=== PATIENT | male | born 1970 | race African-American/Black ===

== ENCOUNTER 2020-12-22 11:46 | Observation (INO) | payer BC ==
[2020-12-22 13:46] LABS: BASO % 0.6 % (0-2.0); EOS % 2.8 % (0-4.5); HEMATOCRIT 47.3 % (35.4-49); HEMOGLOBIN 15.9 GM/dL (11.7-16.9); LYMPH % 25.6 % (8-40); MCH 30.3 pg (25.7-33.7); MCHC 33.5 g/dl (32.0-35.9); MEAN CELL VOLUME 90.5 fl (80-96); MEAN PLT VOLUME 7.2 fl (7.5-11.1); MONO % 8.8 % (3.8-10.2); NEUT % 62.2 % (42.8-82.8); PLATELET COUNT 217 10^3/uL (134-434); RBC 5.23 M/mm3 (4.00-5.60); RDW 13.8 % (11.9-15.9); WHITE BLOOD COUNT 7.2 K/mm3 (4.0-10.0)
[2020-12-22 14:03] LABS: INR 0.92 (0.83-1.09); PROTHROMBIN TIME (PATIENT) 11.3 SEC (9.7-13.0)
[2020-12-22 14:05] LABS: ALBUMIN 4.6 g/dl (3.4-5.0); BLOOD UREA NITROGEN 12.3 mg/dL (7-18); CALCIUM 9.7 mg/dL (8.5-10.1); MAGNESIUM 2.5 mg/dL (1.8-2.4)
[2020-12-22 14:10] LABS: BILIRUBIN,TOTAL 0.7 mg/dL (0.2-1); TOT PROT 8.6 g/dl (6.4-8.2)
[2020-12-22 14:13] LABS: N-TERMINAL BNP 12.5 pg/ml (5-125)
[2020-12-22] MEDS ORDERED: ASPIRIN 325 MG TABLET PO ONE (14:16)
[2020-12-22] MEDS ORDERED: ASPIRIN 81 MG CHEWABLE TABLETS ONE (14:25)
[2020-12-22 15:01] LABS: CREATININE 1.2 mg/dL (0.55-1.3)
[2020-12-22 17:19] VITALS: BMI 35.7
[2020-12-22] MEDS ORDERED: amLODIPine BESYLATE 5 MG TABLET (FP) PO ONE (17:58)
[2020-12-22] MEDS ORDERED: ATORVASTATIN CA 80 MG TABLET (FP) PO ONE (18:31)
[2020-12-23 07:24] LABS: BASO % 0.7 % (0-2.0); EOS % 3.3 % (0-4.5); HEMATOCRIT 44.6 % (35.4-49); HEMOGLOBIN 15.2 GM/dL (11.7-16.9); LYMPH % 28.6 % (8-40); MCH 30.8 pg (25.7-33.7); MEAN CELL VOLUME 90.6 fl (80-96); MEAN PLT VOLUME 6.9 fl (7.5-11.1); MONO % 9.4 % (3.8-10.2); PLATELET COUNT 206 10^3/uL (134-434); RBC 4.92 M/mm3 (4.00-5.60); RDW 13.8 % (11.9-15.9); WHITE BLOOD COUNT 6.7 K/mm3 (4.0-10.0)
[2020-12-23 07:43] LABS: CALCIUM 9.3 mg/dL (8.5-10.1)
[2020-12-23 07:44] LABS: ALBUMIN 4.1 g/dl (3.4-5.0); BLOOD UREA NITROGEN 12.8 mg/dL (7-18); MAGNESIUM 2.3 mg/dL (1.8-2.4)
[2020-12-23 07:46] LABS: CREATININE 1.2 mg/dL (0.55-1.3); PHOSPHOROUS 3.2 mg/dL (2.5-4.9)
[2020-12-23 07:47] LABS: BILIRUBIN,TOTAL 1.5 mg/dL (0.2-1); TOT PROT 7.7 g/dl (6.4-8.2)
[2020-12-23] MEDS: amLODIPine BESYLATE 5 MG TABLET (FP) PO SCH ×2 (08:29→12:21)
[2020-12-23] MEDS ORDERED: PT OWN MED DRAWER 7, Y5N ONE (09:05)
[2020-12-23] MEDS ORDERED: ASPIRIN COATED 81 MG TABLET.EC PO SCH (10:00)
[2020-12-23] MEDS ORDERED: CLOPIDOGREL BISULFATE 300 MG TABLET PO ONE (12:00)
[2020-12-23] MEDS: metoPROLOL SUCCINATE 25 MG TAB.SR.24H (FP) PO SCH (12:21)
[2020-12-23] MEDS: ENOXAPARIN NA (PORCINE) 40 MG/0.4 ML DISP.SYRIN SQ SCH (13:33)
[2020-12-24 07:38] LABS: TRIGLYCERIDES 70 mg/dL (0-150)
[2020-12-24 07:40] LABS: HDL CHOLESTEROL 46 mg/dL (40-60)
[2020-12-24 07:41] LABS: CHOLESTEROL 146 mg/dL (50-200)
[2020-12-24 07:42] LABS: LDL CHOLESTEROL (ONLY SJRH) 78 mg/dL (5-100)
[2020-12-24] MEDS ORDERED: CLOPIDOGREL BISULFATE 75 MG TABLET (FP) PO SCH (10:00)
[2020-12-24] MEDS ORDERED: ATORVASTATIN CA 80 MG TABLET (FP) PO ONE (10:00)
[2020-12-24] MEDS ORDERED: LISINOPRIL 5 MG TABLET PO ONE (10:08)
[2020-12-24] MEDS: amLODIPine BESYLATE 5 MG TABLET (FP) PO SCH (10:55)
[2020-12-24] MEDS: metoPROLOL SUCCINATE 25 MG TAB.SR.24H (FP) PO SCH (10:55)
[2020-12-24] MEDS: ENOXAPARIN NA (PORCINE) 40 MG/0.4 ML DISP.SYRIN SQ SCH (10:55)
[2020-12-24] MEDS ORDERED: ASPIRIN 81 MG CHEWABLE TABLETS PO ONE (11:09)
[2020-12-24 18:05] VITALS: BP 128/86; PULSE 81; TEMP 97.4
[2020-12-25] MEDS ORDERED: ASPIRIN 81 MG CHEWABLE TABLETS PO SCH (10:00)
[2020-12-25] MEDS ORDERED: LISINOPRIL 5 MG TABLET PO SCH (10:00)
[2020-12-25] MEDS ORDERED: ATORVASTATIN CA 80 MG TABLET (FP) PO SCH (22:00)
== END 2020-12-24 18:09 | disposition short-term general hospital (02) ==
LOC: JER 11:46 → INTOOBSV 14:17 → JERBED 14:17 → UNDOADMOB 14:17 → JERBED 16:54 → J4W 16:54 → JERBED 12-23 09:56
PROVIDERS: ATTEND Nurse Practitioner Acute Care
PROC: 3E023GC Introduction of Other Therapeutic Substance into Muscle, Percutaneous Approach (ICD-10-PCS; principal; 2020-12-23)
PROC: B246ZZZ Ultrasonography of Right and Left Heart (ICD-10-PCS; 2020-12-23)
DX: R07.9 Chest pain, unspecified (principal); I20.9 Angina pectoris, unspecified; R77.8 Other specified abnormalities of plasma proteins; I10 Essential (primary) hypertension; E78.00 Pure hypercholesterolemia, unspecified; F41.9 Anxiety disorder, unspecified; E66.9 Obesity, unspecified; Z68.35 Body mass index [BMI] 35.0-35.9, adult; Z85.47 Personal history of malignant neoplasm of testis; Z90.79 Acquired absence of other genital organ(s)
CPT/HCPCS: 36415; 71045-TC-FY; 80053; 80061; 82550; 82553; 83036; 83721; 83735; 83880; 84100; 84443; 84484; 85025; 85610; 93005; 93010; 93306-TC; 99285-25; C9803; G0378; U0003; U0005